=== PATIENT | male | born 2000 ===

== ENCOUNTER 2023-08-24 08:27 | Day surgery (SDC) | payer OTHER ==
[~2023-08-24] VITALS: Ht 203.2 cm; Wt 98.4 kg
[~2023-08-24 08:27] MED LIST: LR 1,000 ML IV SCH; Ondansetron 4 MG/2 ML VIAL IV PRN; PRILOSEC 20MG20 MG PO
[2023-08-24 08:36] VITALS: BP 133/82; PULSE 64; TEMP 97.2
[2023-08-24] MEDS ORDERED: Lidocaine PF 2% (20 MG/ML) 5 ML VIAL ONE (09:41)
[2023-08-24 10:12] VITALS: BP 115/71; PULSE 66; TEMP 97
[2023-08-24 10:27] VITALS: BP 112/81; PULSE 62
[2023-08-24 10:42] VITALS: BP 119/77; PULSE 63
--- NOTE | 2023-08-24 11:20 | NUR ---
1012-Pt arrived via cart to [facility] , pt ambulated with assistance to recliner. Warm blanket provided. Vital signs taken, vss. Pt denies nausea or pain at this time. Report obtained from ROSAURA WASHBURN. Pt offered po intake at this time. Update provided to patient and/or family. 1027-Pt tolerating po intake well, denies complaints. VSS. 1045-Provider at bedside, procedure and plan of care reviewed, questions invited. 105.-VSS. Discharge instructions reviewed with pt, questions invited. IV site discontinued, tip intact. Pressure held and bandage applied. Pt dressed into personal clothing. 1057-Pt discharged home to [facility] via wheelchair, accompanied by family. All belongings and discharge instructions sent with pt.
== END 2023-08-24 10:57 | disposition home or self-care (01) ==
LOC: EDSEX 08:27 → SDCO 08:27
DX: K22.2 Esophageal obstruction (principal); K20.0 Eosinophilic esophagitis; K21.9 Gastro-esophageal reflux disease without esophagitis
CPT/HCPCS: C1726; J2704; J7120

== ENCOUNTER 2023-11-18 06:22 | Day surgery (SDC) | payer OTHER ==
[~2023-11-18] VITALS: Ht 203.2 cm; Wt 97.0 kg
[2023-11-18] MEDS ORDERED: PRIL40 PO (06:53)
[2023-11-18] MEDS ORDERED: Lidocaine PF 2% (20 MG/ML) 5 ML VIAL ONE (08:02)
[2023-11-18 08:39] VITALS: BP 103/71; PULSE 67; TEMP 97.9
[2023-11-18 08:55] VITALS: BP 124/78; PULSE 68
--- NOTE | 2023-11-18 09:09 | NUR ---
[id number]: PT TO RECOVERY BAY FROM [facility]O [facility] S/P EGD WITH BIOPSIES A&O, PLACED ON MONITOR, VSS ON RA DENIES COMPLAINT RECEIVED REPORT AND ASSUMED CARE OF PT FROM RN CAROLE PICKING UP PT AT TIME OF DC PROVIDED FOOD/FLUIDS, TOLERATING WELL PT HAS REMAINED A&O, NAD, VSS ON RA, TOLERATING PO, IS WITHOUT SIGNIFICANT COMPLAINT, WITH STEADY GAIT BY THE END OF STAY IV D/C'D. D/C INSTRUCTIONS, FOLLOW UP REVIEWED AND HANDED TO PT. ALL QUESTIONS AND CONCERNS ADDRESSED TO PT SATISFACTION. TAKEN TO EXIT VIA W/C WITH ALL BELONGINGS AND PAPERWORK IN HAND, ASSISTED INTO PASSENGER SEAT OF POV. FAMILY TO DRIVE HOME.
[2023-11-18 12:28] VITALS: BP 127/79; PULSE 67; TEMP 97.5
--- NOTE | 2023-11-18 12:34 | NUR ---
0646 Patient ambulatory to bay 4 with a steady gait, breathing even and unlabored. Patient is alert and oriented. Consents reviewed and signed by patient. IV establishe. LR infusing via gravity at KVO. Call light in reach. Warm blanket provided.
== END 2023-11-18 09:14 | disposition home or self-care (01) ==
LOC: SDCO 06:22
DX: K20.0 Eosinophilic esophagitis (principal); K21.9 Gastro-esophageal reflux disease without esophagitis; Z79.899 Other long term (current) drug therapy; Z87.891 Personal history of nicotine dependence
CPT/HCPCS: J2704; J7120